=== PATIENT | male | born 2005 | race Two or more races ===

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

== ENCOUNTER 2024-04-05 10:32 | Emergency (ER) | payer OTHER ==
[~2024-04-05] VITALS: Ht 185.4 cm; Wt 199.6 kg
[2024-04-05] MEDS ORDERED: DEXTROSE 5 % AND 0.9 % NACL 1,000 ML IV SCH (12:00)
[2024-04-05] MEDS ORDERED: FAMOtidine 10 MG/ML (4ML VIAL) IV PUSH ONE (12:00)
[2024-04-05] MEDS ORDERED: ONDANSETRON HCL 2 MG/ML VIAL IV ONE (12:00)
[2024-04-05 13:02] LABS: HEMATOCRIT 44.4 % (39.0-48.0); HEMOGLOBIN 14.9 g/dL (13-16.00); MEAN CELL VOLUME 87.2 fL (80.0-100.00); MEAN CORPUSCULAR HEMOGLOBIN 29.2 pg (27.00-32.0); MEAN CORPUSCULAR HGB CONC 33.5 g/dl (32.0-36.0); PLATELET COUNT 189 K/uL (150-450); RED BLOOD COUNT 5.09 M/uL (4.00-6.00); RED CELL DISTRIBUTION WIDTH 13.4 % (11.5-14.5)
[2024-04-05] MEDS ORDERED: DEXTROSE 5 %-0.45 % SOD CHLORD 1,000 ML IV SCH (14:00)
[2024-04-05 14:43] LABS: BILIRUBIN TOTAL 0.61 mg/dL (0.3-1.2); CALCIUM 9.5 mg/dL (8.5-10.1); CREATININE SERUM 0.71 mg/dL (0.70-1.30); GFR 141.44; GLOBULINA 3.7 G/DL (2.4-3.5); POTASSIUM 4.38 mEq/L (3.5-5.1); TOTAL PROTEIN 7.7 gm/dL (6.4-8.2)
[2024-04-05] MEDS ORDERED: LACTOBACILLUS ACIDOPHILUS 1 CAP CAP PO STA (18:24)
== END 2024-04-05 20:11 | disposition home or self-care (01) ==
LOC: EMR PED 10:34 → ER 10:34 → EMR PED 20:11
PROVIDERS: General Practice
DX: K52.9 Noninfective gastroenteritis and colitis, unspecified (principal); R53.81 Other malaise; Z20.822 Contact with and (suspected) exposure to COVID-19; Z88.6 Allergy status to analgesic agent

== ENCOUNTER 2024-06-30 15:34 | Emergency (ER) | payer OTHER ==
[~2024-06-30] VITALS: Ht 188 cm; Wt 192.8 kg
[2024-06-30] MEDS ORDERED: ALBUTEROL SULFATE 3 ML/2.5 MG AMPUL.NEB IH SCH (18:27)
[2024-06-30] MEDS ORDERED: METHYLPREDNISOLONE SOD SUCC 125 MG VIAL IV SCH (18:30)
[2024-06-30] MEDS ORDERED: ALBUTEROL SULFATE 3 ML/2.5 MG AMPUL.NEB IH ONE (19:01)
[2024-06-30 21:40] LABS: HEMATOCRIT 44.1 % (39.0-48.0); HEMOGLOBIN 14.8 g/dL (13-16.00); MEAN CELL VOLUME 86.5 fL (80.0-100.00); MEAN CORPUSCULAR HGB CONC 33.5 g/dl (32.0-36.0); PLATELET COUNT 197 K/uL (150-450); RED CELL DISTRIBUTION WIDTH 14.2 % (11.5-14.5)
[2024-06-30] MEDS ORDERED: WATER FOR INJ.,BACTERIOSTATIC 30 ML VIAL IJ ONE (21:42)
[2024-06-30] MEDS ORDERED: METHYLPREDNISOLONE SOD SUCC 125 MG VIAL ONE (21:42)
[2024-06-30] MEDS ORDERED: ACETAMINOPHEN 500 MG GEL..CAP PO STA (22:16)
[2024-06-30] MEDS ORDERED: ACETAMINOPHEN 500 MG GEL..CAP PO ONE (22:20)
== END 2024-06-30 22:26 | disposition home or self-care (01) ==
LOC: EMR PED 15:34 → ER 15:34 → EMR PED 15:50
PROVIDERS: Emergency Medicine Pediatric Emergency Medicine
DX: J45.998 Other asthma (principal); Z20.822 Contact with and (suspected) exposure to COVID-19; Z88.6 Allergy status to analgesic agent

== ENCOUNTER 2024-08-13 21:58 | Emergency (ER) | payer OTHER ==
[~2024-08-13] VITALS: Ht 185.4 cm; Wt 195.0 kg
[2024-08-14 01:08] LABS: INFLUENZA A AG NEGATIVE (NEGATIVE)
[2024-08-14 01:11] LABS: COVID-19 AG POSITIVE (NEGATIVE)
[2024-08-14] MEDS ORDERED: PAXLOVID 300-11 EAC1 PO (01:25)
[2024-08-14] MEDS ORDERED: TUSNEL LIQUID178 ML PO (01:25)
[2024-08-14] MEDS ORDERED: IPRAT-ALBUT 0.5-3 ML IH (01:25)
== END 2024-08-14 01:32 | disposition home or self-care (01) ==
LOC: ER 22:00 → EMR PED 22:26 → ER 22:26 → EMR PED 08-14 01:32
PROVIDERS: General Practice
DX: U07.1 COVID-19 (principal); Z88.6 Allergy status to analgesic agent; G47.33 Obstructive sleep apnea (adult) (pediatric); J45.909 Unspecified asthma, uncomplicated

== ENCOUNTER 2024-12-22 18:26 | Emergency (ER) | payer OTHER ==
[~2024-12-22] VITALS: Ht 185.4 cm; Wt 198.2 kg
[~2024-12-22 18:26] MED LIST changes: +IPRAT-ALBUT 0.5-3 ML IH; +PAXLOVID 300-11 EAC1 PO; +TUSNEL LIQUID178 ML PO
[2024-12-22] MEDS ORDERED: FAMOTIDINE/PF 20 MG/2 ML VIAL IV SCH (19:30)
[2024-12-22] MEDS ORDERED: ONDANSETRON HCL 2 MG/ML VIAL IV SCH (19:30)
[2024-12-22 20:26] LABS: BASO % 0.7 % (0.1-1.2); EOS # 0.30 (0.04-0.54); EOS % 3.9 % (0.7-7.0); LYMPH # 1.26 (1.18-3.74); LYMPH % 16.5 % (19.3-53.1); MEAN PLATELET VOLUME 12.60 fl (9.4-12.4); MONO # 0.55 (0.24-0.82); MONO % 7.2 % (4.7-12.5); NEUT # 5.48 (1.56-6.13); NEUT % 71.6 % (34.0-71.1); RED CELL DISTRIBUTION WIDTH 12.4 % (11.6-14.4)
[2024-12-22 21:12] LABS: COVID-19 AG NEGATIVE (NEGATIVE)
[2024-12-22 21:17] LABS: ALT/SGPT 27.0 U/L (12-78); AST/SGOT 17.0 U/L (15-37); BILIRUBIN TOTAL 0.35 mg/dL (0.3-1.2); BUN CREA RATIO 19.0 (7.0-25.0); CREATININE SERUM 0.63 mg/dL (0.70-1.30); GFR 162.36; GLOBULINA 3.6 G/DL (2.4-3.5); GLUCOSE FASTING 87.0 mg/dL (65-100); OSMOLALITY SERUM 282.0 MOSM/KG (275-295)
[2024-12-22] MEDS ORDERED: CEFTRIAXONE SODIUM 2,000 MG VIAL IV ONE (21:45)
[2024-12-23 00:10] VITALS: BP 150/70; O2SAT 99
== END 2024-12-23 00:13 | disposition home or self-care (01) ==
LOC: ER 18:26 → EMR PED 18:37
PROVIDERS: Emergency Medicine Pediatric Emergency Medicine
DX: J32.8 Other chronic sinusitis (principal); R50.9 Fever, unspecified; R11.0 Nausea; Z88.6 Allergy status to analgesic agent; Z20.822 Contact with and (suspected) exposure to COVID-19